=== PATIENT | male | born 1975 | race African-American/Black ===

== ENCOUNTER 2020-10-13 19:35 | Emergency (ER) | payer BC ==
[2020-10-13 20:52] LABS: Absolute Lymphocytes (CBC) 2.2 K/uL (0.7-4.9); Basophils % 0.9 % (0-1.3); Hematocrit 39.4 % (39.6-49.0); Lymphocytes % 34.7 % (15.3-44.8); MPV 8.3 fL (7.6-11.3); RBC Red Blood Cell Count 6.28 M/uL (4.33-5.43)
[2020-10-13 21:12] LABS: ALT/SGPT 73 U/L (12-78); AST/SGOT 35 U/L (15-37); Albumin 4.3 g/dL (3.4-5.0); Alkaline Phosphatase 78 U/L (45-117); BUN Blood Urea Nitrogen 19 mg/dL (7-18); Bicarbonate 26 mmol/L (21-32); Bilirubin Direct < 0.1 mg/dL (0-0.2); Bilirubin Total 0.3 mg/dL (0.2-1.0); Lipase 196 U/L (73-393); Potassium 4.1 mmol/L (3.5-5.1); Protein, Total 8.8 g/dL (6.4-8.2); Sodium Level 129 mmol/L (136-145)
[2020-10-13 21:14] LABS: Glucose Level 547 mg/dL (74-106)
[2020-10-13 21:28] LABS: Urine Blood Negative (Negative); Urine Glucose 2+ (Negative); Urine Protein Negative (Negative)
[2020-10-13 21:35] LABS: Anisocytosis 1+; Blood Morphology Comment NOTED (NOT SEEN); Hypochromasia 1+; Platelet Estimate ADEQ; Platelets, Giant FEW; Target Cells 1+; White Blood Cell Scan OK (OK)
[2020-10-13] MEDS ORDERED: NA CHLORIDE 0.9% 2,000 ML ONE (21:37)
[2020-10-13] MEDS ORDERED: INSULIN -REGULAR HUMAN 50 UNIT/0.5 ML ML ONE (22:16)
[2020-10-13] MEDS ORDERED: METFORMIN HCL 500 MG TAB ONE (22:16)
--- NOTE | 2020-10-13 23:50 | EDPHYS ---
Physician Documentation [facility] Name: Dallin Duval Age: 45 yrs Sex: Male : 1975 Arrival Date: 10/13/2020 Time: 19:39 Bed 5 Private MD: ED Physician Ray Pang HPI: 10/13 20:40 This 45 yrs old Black Male presents to ER via Ambulatory with complaints of High Blood cp Sugar. 20:40 The patient or guardian reports hyperglycemia, polyphagia, polyuria. Onset: The cp symptoms/episode began/occurred gradually, and became worse today. Current symptoms: In the emergency department the patient's symptoms are unchanged from the initial presentation. 20:40 Patient reports symptoms over past several weeks. Reports was dealing with cp constipation, so he he made changes to diet but symptoms worsening. Historical: - Allergies: 20:32 PENICILLINS; vg1 - Home Meds: 20:32 amlodipine oral [Active]; vg1 - PMHx: 20:32 Hypertensive disorder; vg1 - PSHx: 20:32 None; vg1 - Immunization history:: Adult Immunizations up to date, Client reports receiving the 2nd dose of the Covid vaccine. - Social history:: Smoking status: Patient denies any tobacco usage or history of. ROS: 20:45 Constitutional: Negative for body aches, chills, fever, poor PO intake. cp 20:45 Eyes: Negative for injury, pain, redness, and discharge. cp 20:45 ENT: Negative for drainage from ear(s), ear pain, sore throat, difficulty swallowing, difficulty handling secretions. 20:45 Cardiovascular: Negative for chest pain, palpitations. 20:45 Respiratory: Negative for cough, shortness of breath, wheezing. 20:45 Abdomen/GI: Positive for constipation, Negative for abdominal pain, nausea, vomiting, and diarrhea, black/tarry stool, rectal bleeding. 20:45 : Positive for urinary frequency. 20:45 Skin: Negative for cellulitis, rash. 20:45 Neuro: Negative for altered mental status, headache, weakness. 20:45 Endocrine: Positive for polydipsia, polyphagia, polyuria. 20:45 All other systems are negative. Exam: 20:50 Constitutional: The patient appears in no acute distress, alert, awake, cp non-diaphoretic, non-toxic, well developed, well nourished. 20:50 Head/Face: Normocephalic, atraumatic. cp 20:50 Eyes: Periorbital structures: appear normal, Pupils: equal, round, and reactive to light and accomodation, Extraocular movements: intact throughout, Conjunctiva: normal, no exudate, no injection, Sclera: no appreciated abnormality, Lids and lashes: appear normal, bilaterally. 20:50 ENT: External ear(s): are unremarkable, Nose: is normal, Mouth: Lips: moist, Oral mucosa: pink and intact, moist, Posterior pharynx: Airway: no evidence of obstruction, patent, Voice: is normal. 20:50 Neck: ROM/movement: is normal, is supple, without pain, no range of motions limitations. 20:50 Chest/axilla: Inspection: normal, Palpation: is normal, no crepitus, no tenderness. 20:50 Cardiovascular: Rate: normal, Rhythm: regular, Edema: is not appreciated, JVD: is not appreciated. 20:50 Respiratory: the patient does not display signs of respiratory distress, Respirations: normal, no use of accessory muscles, no retractions, labored breathing, is not present, Breath sounds: are clear throughout, no decreased breath sounds, no stridor, no wheezing. 20:50 Abdomen/GI: Inspection: abdomen appears normal, Palpation: abdomen is soft and non-tender, in all quadrants. 20:50 Skin: no rash present. 20:50 Neuro: Orientation: to person, place \T\ time. Mentation: is normal, Cerebellar function: is grossly normal, Motor: moves all fours, strength is normal, Sensation: is normal. 21:27 ECG was reviewed by the Attending Physician. cp Vital Signs: 20:26 BP 148 / 86; Pulse 83; Resp 16; Temp 97.6; Pulse Ox 96% ; Weight 106.59 kg; Height 6 vg1 ft. 4 in. (193.04 cm); Pain 0/10; 23:17 BP 126 / 78; Pulse 73; Resp 18; Temp 98; Pulse Ox 100% ; ea 20:26 Body Mass Index 28.60 (106.59 kg, 193.04 cm) vg1 MDM: 21:00 Differential diagnosis: diabetes insipidus, DKA, hyperglycemia. cp 21:05 Patient medically screened. cp 23:48 Data reviewed: vital signs, nurses notes, lab test result(s), EKG. 23:48 Counseling: I had a detailed discussion with the patient and/or guardian regarding: the cp historical points, exam findings, and any diagnostic results supporting the discharge/admit diagnosis, lab results, the need for outpatient follow up, for definitive care, a family practitioner, to return to the emergency department if symptoms worsen or persist or if there are any questions or concerns that arise at home. 10/13 20:35 Order name: Basic Metabolic Panel 10/13 20:35 Order name: CBC with Diff 10/13 20:35 Order name: Hepatic Function; Complete Time: 21:40 10/13 21:40 Interpretation: Normal except: TP 8.8; GLOB 4.5; A/G 1.0. 10/13 20:35 Order name: Lipase; Complete Time: 21:40 10/13 20:35 Order name: Ketone, Serum; Complete Time: 21:40 10/13 20:36 Order name: Basic Metabolic Panel; Complete Time: 21:18 EDMS 10/13 21:41 Interpretation: Normal except: NA 129; CL 93; GLUC 547; BUN 19; CRE 1.54; GFR 59. cp 10/13 20:36 Order name: CBC with Automated Diff; Complete Time: 21:40 EDMS 10/13 21:41 Interpretation: Normal except: RBC 6.28; HGB 12.6; HCT 39.4; MCV 62.7; MCH 20.0; MCHC cp 31.9; RDW 16.6. 10/13 20:38 Order name: Glucose, Ancillary Testing; Complete Time: 21:05 EDMS 10/13 21:28 Order name: Urine Dipstick-Ancillary; Complete Time: 21:40 EDMS 10/13 21:41 Interpretation: Normal except: UGLUC 2+; UKET 1+. 10/13 21:35 Order name: CBC Smear Scan; Complete Time: 21:40 EDMS 10/13 23:33 Order name: Glucose, Ancillary Testing EDWV 10/13 20:35 Order name: NPO; Complete Time: 20:39 10/13 20:35 Order name: IV Saline Lock; Complete Time: 21:23 10/13 20:35 Order name: Labs collected and sent; Complete Time: 21:23 cp 10/13 21:13 Order name: EKG; Complete Time: 21:13 cp 10/13 21:13 Order name: EKG - Nurse/Tech; Complete Time: :43 cp 10/13 23:06 Order name: Accucheck Blood Glucose; Complete Time: 23:16 cp EC: Rate is 81 beats/min. Rhythm is regular. IN interval is normal. QRS interval is cp prolonged at 102 msec. QT interval is normal. T waves are Inverted in lead III. Interpreted by me. Reviewed by me. Administered Medications: : Drug: NS 0.9% 1000 ml Route: IV; Rate: 1 bolus; Site: right antecubital; ea 21:23 Drug: NS 0.9% 1000 ml Route: IV; Rate: 1 bolus; Site: right antecubital; ea 21:50 Drug: Insulin Regular Human 5 units {Co-Signature: roe (Pal Givens.} Route: IVP; ea Site: right antecubital; 23:16 Follow up: Response: No adverse reaction ea 21:57 Drug: metFORMIN 500 mg Route: PO; ea 23:16 Follow up: Response: No adverse reaction ea Disposition: 10/14 01:17 Co-signature as Attending Physician, Ray Pang MD. pkl Disposition Summary: 10/13/20 23:49 Discharge Ordered Location: Home cp Problem: new cp Symptoms: have improved cp Condition: Stable cp Diagnosis - Diabetes mellitus due to underlying condition with hyperglycemia cp Followup: cp - With: Private Physician - When: 2 - 3 days - Reason: Recheck today's complaints Discharge Instructions: - Discharge Summary Sheet cp - Type 2 Diabetes Mellitus, Diagnosis, Adult cp - Hyperglycemia cp - Blood Glucose Monitoring, Adult cp - Diabetes Mellitus and Nutrition, Adult cp Forms: - Medication Reconciliation Form cp - Thank You Letter cp - Antibiotic Education cp - Prescription Opioid Use cp Prescriptions: - Metformin 500 mg Oral Tablet - take 1 tablet by ORAL route once daily for 7 days Then take 1 tablet with cp morning meals AND evening meals; 60 tablet; Refills: 0, Product Selection Permitted Signatures: Dispatcher MedHo Ray Guzman MD MD pkRosales Verma FNP-C [id number] Waylon Chaudhary PA PA cp Tamica Castro RN RN ea Garcia, Victoria, RN RN 1 Pal Thompson ak2
--- NOTE | 2020-10-13 23:50 | ER ---
Nurse's Notes [facility] Name: Dallin Duval Age: 45 yrs Sex: Male : 1975 Arrival Date: 10/13/2020 Time: 19:39 Bed 5 Private MD: Diagnosis: Diabetes mellitus due to underlying condition with hyperglycemia Presentation: 10/13 20:26 Chief complaint: Patient states: Is not dx with DM but stated that has been feeling vg1 very thristy, constipation, has had UTI, excessive urination and fatigued. Stated mother is a diabetic and she had him test his glucose and throughout the day FSBS has been in the 600's. FSBG done in triage, glucometer read "HI, exceeds measure". Coronavirus screen: Client denies travel out of the [place] in the last 14 days. Ebola Screen: Patient negative for fever greater than or equal to 101.5 degrees Fahrenheit, and additional compatible Ebola Virus Disease symptoms. Initial Sepsis Screen: Does the patient meet any 2 criteria? No. Patient's initial sepsis screen is negative. Does the patient have a suspected source of infection? No. Patient's initial sepsis screen is negative. Risk Assessment: Do you want to hurt yourself or someone else? Patient reports no desire to harm self or others. Onset of symptoms was October 13, 2020. 20:26 Method Of Arrival: Ambulatory vg1 20:26 Acuity: MELINA 2 vg1 Triage Assessment: 20:32 General: Appears in no apparent distress. comfortable, Behavior is calm, cooperative. vg1 Pain: Denies pain. Historical: - Allergies: 20:32 PENICILLINS; vg1 - Home Meds: 20:32 amlodipine oral [Active]; vg1 - PMHx: 20:32 Hypertensive disorder; vg1 - PSHx: 20:32 None; vg1 - Immunization history:: Adult Immunizations up to date, Client reports receiving the 2nd dose of the Covid vaccine. - Social history:: Smoking status: Patient denies any tobacco usage or history of. Screenin:22 Abuse screen: Denies threats or abuse. Nutritional screening: No deficits noted. ea Tuberculosis screening: No symptoms or risk factors identified. Fall Risk None identified. Assessment: 21:22 General: Appears in no apparent distress. Behavior is calm, cooperative, appropriate ea for age. Pain: Denies pain. Neuro: Level of Consciousness is awake, alert, obeys commands, Oriented to person, place, time. Respiratory: Airway is patent Respiratory effort is even, unlabored, Respiratory pattern is regular, symmetrical. Derm: Skin is pink, warm \\T\\ dry. 23:17 Reassessment: Patient and/or family updated on plan of care and expected duration. Pain ea level reassessed. Patient is alert, oriented x 3, equal unlabored respirations, skin warm/dry/pink. 10/14 00:01 Reassessment: Patient and/or family updated on plan of care and expected duration. Pain ea level reassessed. Patient is alert, oriented x 3, equal unlabored respirations, skin warm/dry/pink. Discharge instruction given to patient verbalized the understanding of instruction. Pt left ED ambulatory tolerating well. Vital Signs: 10/13 20:26 BP 148 / 86; Pulse 83; Resp 16; Temp 97.6; Pulse Ox 96% ; Weight 106.59 kg; Height 6 vg1 ft. 4 in. (193.04 cm); Pain 0/10; 23:17 BP 126 / 78; Pulse 73; Resp 18; Temp 98; Pulse Ox 100% ; ea 20:26 Body Mass Index 28.60 (106.59 kg, 193.04 cm) vg1 ED Course: 19:39 Patient arrived in ED. bp1 20:32 Triage completed. vg1 20:32 Arm band placed on Patient placed in waiting room, Patient notified of wait time. vg1 20:35 Waylon Chaudhary PA is PHCP. cp 20:35 Ray Pang MD is Attending Physician. cp 21:22 Patient has correct armband on for positive identification. Bed in low position. Call ea light in reach. Side rails up X2. 21:30 EKG done, by ED staff, reviewed by Waylon DOMINGUEZ. tt3 21:42 Tamica Castro, GLORIA is Primary Nurse. ea 10/14 00:01 No provider procedures requiring assistance completed. IV discontinued, intact, ea bleeding controlled, No redness/swelling at site. Pressure dressing applied. Administered Medications: 10/13 21:23 Drug: NS 0.9% 1000 ml Route: IV; Rate: 1 bolus; Site: right antecubital; ea 21:23 Drug: NS 0.9% 1000 ml Route: IV; Rate: 1 bolus; Site: right antecubital; ea 21:50 Drug: Insulin Regular Human 5 units {Co-Signature: ak2 (Pal Thompson).} Route: IVP; ea Site: right antecubital; 23:16 Follow up: Response: No adverse reaction ea 21:57 Drug: metFORMIN 500 mg Route: PO; ea 23:16 Follow up: Response: No adverse reaction ea Outcome: 23:49 Discharge ordered by MD. moscoso 10/14 00:01 Discharged to home ambulatory, with family. ea Condition: stable Discharge instructions given to patient, Instructed on discharge instructions, follow up and referral plans. medication usage, Demonstrated understanding of instructions, follow-up care, medications, Prescriptions given X 1. 00:03 Patient left the ED. ea Signatures: Waylon Chaudhary PA PA cp Antunez, Elena, RN Carmelina Enciso ea, RN RN vg1 Nadiya Madrigal Tyler tt3 Pal Thompson ak2
[2020-10-14 00:50] VITALS: BP 126/78; TEMP 98; O2SAT 100
--- NOTE | 2020-10-16 09:08 | EKG ---
Test Date: 2020-10-13 Test Time: 21:20:50 Football Pad Repairer: TLT MEASUREMENT RESULTS: Intervals: Rate: 81 WV: 168 QRSD: 102 QT: 368 QTc: 427 [place]: P: 51 WV: 168 QRS: 32 T: 9 INTERPRETIVE STATEMENTS: Normal sinus rhythm Nonspecific ST abnormality Abnormal ECG No previous ECG available for comparison Electronically Signed On 10-16-20 09:04:14 CDT by Pool Mckenzie
== END 2020-10-14 00:03 | disposition home or self-care (01) ==
LOC: ER 19:35
DX: E11.65 Type 2 diabetes mellitus with hyperglycemia (principal); I10 Essential (primary) hypertension; Z88.0 Allergy status to penicillin
CPT/HCPCS: 93005; 85025; 80048; 36415; 82010; 82947 ×2; 80076; 81003; 83690; 96374; 99283; J7030

== ENCOUNTER 2020-10-14 20:30 | Emergency (ER) | payer BC ==
--- NOTE | 2020-10-14 21:27 | ER ---
Nurse's Notes [facility] Name: Dallin Duval Age: 45 yrs Sex: Male : 1975 Arrival Date: 10/14/2020 Time: 20:33 Bed Waiting Private MD: Diagnosis: Presentation: 10/14 21:20 Chief complaint: Patient states: he was seen here yesterday with new onset diabetes BGL bb was 600 he can't get it down 585 now at home. Coronavirus screen: At this time, the client does not indicate any symptoms associated with coronavirus-19. Ebola Screen: No symptoms or risks identified at this time. Initial Sepsis Screen: Does the patient meet any 2 criteria? No. Patient's initial sepsis screen is negative. Does the patient have a suspected source of infection? No. Patient's initial sepsis screen is negative. Risk Assessment: Do you want to hurt yourself or someone else? Patient reports no desire to harm self or others. Note pt took a total of 20 units of regular insulin today. Onset of symptoms was October 14, 2020. 21:20 Method Of Arrival: Ambulatory bb 21:20 Acuity: MELINA 3 bb 21:26 Note after triage pt decided to go home did not want to wait. bb Triage Assessment: 21:23 General: Appears in no apparent distress. Behavior is calm, cooperative. Pain: Denies bb pain. Neuro: Level of Consciousness is awake, alert, obeys commands, Oriented to person, place, time. Cardiovascular: Capillary refill < 3 seconds Patient's skin is warm and dry. Respiratory: Respiratory effort is even, unlabored. GI: No signs and/or symptoms were reported involving the gastrointestinal system. Derm: Skin is dry, Skin is normal, Skin temperature is warm. Musculoskeletal: Circulation, motion, and sensation intact. Historical: - Allergies: 21:23 PENICILLINS; bb - Home Meds: 21:23 amlodipine oral [Active]; bb - PMHx: 21:23 Hypertensive disorder; bb - Immunization history:: Adult Immunizations up to date. - Social history:: Smoking status: Patient/guardian denies using tobacco, Stopped _ months ago 6. Vital Signs: 21:20 BP 139 / 95; Pulse 71; Resp 16 S; Temp 97.6(TE); Pulse Ox 100% on R/A; Weight 106.59 kg bb (R); Height 6 ft. 4 in. (193.04 cm) (R); Pain 0/10; 21:20 Body Mass Index 28.60 (106.59 kg, 193.04 cm) bb ED Course: 20:33 Patient arrived in ED. wm 21:23 Triage completed. bb 21:23 Arm band placed on Patient placed in waiting room, Patient notified of wait time. bb Administered Medications: No medications were administered Point of Care Testing: Blood Glucose: 21:23 Blood Glucose: 385 mg/dL; bb Ranges: Outcome: 21:27 Patient left the ED. bb Signatures: Christi Pedraza, RN RN bb Brenda Christensen
[2020-10-14 21:31] VITALS: BP 139/95; TEMP 97.6; O2SAT 100
== END 2020-10-14 21:27 | disposition left against medical advice (07) ==
LOC: ER 20:30
DX: Z53.21 Procedure and treatment not carried out due to patient leaving prior to being seen by health care provider (principal)
CPT/HCPCS: 82947; 99281

== ENCOUNTER 2024-03-21 11:01 | Emergency (ER) | payer BC, OTHER ==
--- OUTSIDE RECORDS SUMMARY | 2024-03-21 11:05 | XMS REPORT | Continuity of Care Document ---
Author Name Unknown Address [address] [facility] [address] [place] [address] [facility] Address [address] [facility] [address] [place] [address] Care Team Providers Care Management Aide Name Role Phone Ezequiel Katelyn Primary Care Physician [phone] Allergies, Adverse Reactions, Alerts Allergy Name Allergy Type Status Severity Reaction(s) Onset Date Inactive Date Treating Clinician Comments Source Penicill ins - CLASS Propensi ty to adverse reaction to drug Active 2021-03 0 00:00: 00 Irineo Fowler Penicill ins Propensi ty to adverse reaction to drug Active 09-04 00:00: 00 Irineo Fowler Medications Ordered Medication Name Filled Medication Name Start Date Stop Date Current Medication? Ordering Clinician Indication Dosage Frequency Signature (SIG) Comments Components Source Anni SoloStar U-300 Insulin 300 unit/mL (1.5 mL) subcutaneou s pen 2023-03 00:00: 00 Yes (1.5 mL) Irineo Fowler Levemir U-100 Insulin 100 unit/mL subcutaneou s solution 2023-03 00:00: 00 Yes unit/mL Irineo Fowler lisinopril 5 mg tablet 2023-03- 00:00: 00 Yes 1mg Irineo Fowler Farxiga 10 mg tablet 2023-03- 00:00: 00 Yes 1mg Irineo Fowler glimepiride 2 mg tablet 2023-03- 00:00: 00 Yes 1mg Irineo Fowler metformin ER 1,000 mg tablet,exte nded release 24hr (osmotic) 2023-03- 00:00: 00 Yes 1mg Irineo Fowler metformin ER 1,000 mg 24 hr tablet,exte nded release (gastric reten.) 2023-03 2 00:00: 00 Yes 1mg Irineo Asia Fowler atorvastati n 40 mg tablet 2023-03 2 00:00: 00 Yes 1mg Irnieo F Malcolm TAKE 1 TABLET AT BEDTIME. 4- 00:00: 00 05-05 00:00 :00 No 30 Irineo F Malcolm Take 1 tablet nightly 3- 00:00: 00 Yes 40 Irineo F Malcolm 1-1.5 tabs nightly as needed. - 00:00: 00 05-05 00:00 :00 No 30 Irineo F Maclolm TAKE 1 TABLET DAILY. - 00:00: 00 05-05 00:00 :00 No 5 Irineo F Malcolm TAKE 1 TABLET BY MOUTH EVERY MORNING 06-08 00:00: 00 05-05 00:00 :00 No 10 Irineo F Malcolm INJECT 20 UNITS NIGHTLY - 00:00: 00 05-05 00:00 :00 No 100 Irineo F Malcolm TAKE 1 TABLET BY MOUTH TWICE A DAY 1-07 00:00: 00 05-05 00:00 :00 No 2 Irineo F Malcolm TAKE 1 TABLET DAILY. 2021-03 00:00: 00 05-05 00:00 :00 No 5 Irineo F Malcolm TAKE 1 TABLET BY MOUTH EVERY MORNING 2021-03 00:00: 00 05-05 00:00 :00 No 10 Irineo F Malcolm TAKE 1 TABLET TWICE DAILY. 2021-03 00:00: 00 05-05 00:00 :00 No 1000 Irineo F Malcolm INJECT 20 UNITS NIGHTLY 2021-03 00:00: 00 05-05 00:00 :00 No 100 Irineo F Malcolm INJECT 14 UNITS UNDER THE SKIN EVERY NIGHT. 2021-03 0-10 00:00: 00 No INJECT 14 UNITS UNDER THE SKIN EVERY NIGHT. 2021-03 0-10 00:00: 00 05-05 00:00 :00 No Irineo F Malcolm Dose Unknown 09-06 00:00: 00 No Dose Unknown 09-06 00:00: 00 Yes Irineo Fowler Levemir FlexTouch U-100 Insulin 100 unit/mL (3 mL) subcutaneou s pen 09-05 00:00: 00 No 20(3 mL) atorvastati n 40 mg tablet 09-05 00:00: 00 No 1mg lisinopril 5 mg tablet 09-05 00:00: 00 No 1mg metformin 1,000 mg tablet 09-05 00:00: 00 No 2mg Dose Unknown 09-05 00:00: 00 No mirtazapine 30 mg tablet 09-05 00:00: 00 No mg Levemir FlexTouch U-100 Insulin 100 unit/mL (3 mL) subcutaneou s pen 09-05 00:00: 00 Yes 20(3 mL) Irineo Fowler atorvastati n 40 mg tablet 09-05 00:00: 00 Yes 1mg Irineo Fowler lisinopril 5 mg tablet 09-05 00:00: 00 Yes 1mg Irineo Fowler metformin 1,000 mg tablet 09-05 00:00: 00 Yes 2mg Irineo Fowler Farxiga 10 mg tablet 09-05 00:00: 00 Yes 1mg Irineo Fowler mirtazapine 30 mg tablet 09-05 00:00: 00 Yes mg Irineo Fowler Dose Unknown 09-04 00:00: 00 No lisinopril 5 mg tablet 09-04 00:00: 00 No 1mg metformin 1,000 mg tablet 09-04 00:00: 00 No 2mg atorvastati n 40 mg tablet 09-04 00:00: 00 No 1mg trazodone 50 mg tablet 09-04 00:00: 00 No 1mg Levemir FlexTouch U-100 Insulin 100 unit/mL (3 mL) subcutaneou s pen 09-04 00:00: 00 No 20(3 mL) Levemir FlexTouch U-100 Insulin 100 unit/mL (3 mL) subcutaneou s pen 09-04 00:00: 00 Yes 20(3 mL) Irineo Fowler atorvastati n 40 mg tablet 09-04 00:00: 00 Yes 1mg Irineo Fowler metformin 1,000 mg tablet 09-04 00:00: 00 Yes 2mg Irineo Fowler lisinopril 5 mg tablet 09-04 00:00: 00 Yes 1mg Irineo Fowler Farxiga 10 mg tablet 09-04 00:00: 00 Yes 1mg Irineo Fowler trazodone 50 mg tablet 09-04 00:00: 00 Yes 1mg Irineo Fowler TAKE ONE-HALF (1/2) TABLET(S) BY MOUTH ONCE A DAY. 28 00:00: 00 05-05 00:00 :00 No Irineo Fowler TAKE 1 TABLET (40 MG) BY MOUTH 1 (ONE) TIME EACH DAY. 4-05 00:00: 00 05-05 00:00 :00 No Irineo Fowler TAKE 4 TABLETS (2,000 MG) BY MOUTH 1 (ONE) TIME EACH DAY WITH BREAKFAST. 06-14 00:00: 00 05-05 00:00 :00 No Irineo Fowler Vital Signs Vital Name Observation Time Observation Value Comments S ource BP Diastolic 2024-02-27 09:30:00 91 mm[Hg] Parminder phen Asia Fowler Weight Measured 2024-02-27 09:30:00 219.00 pounds Irineo Fowler Height Measured 2024-02-27 09:30:00 74.00 inches Irineo Fowler Body Temperature 2024-02-27 09:30:00 98.80 degrees Irineo Fowler Heart Rate 2024-02-27 09:30:00 94.00 /min Iliana en Asia Fowler Respiratory Rate 2024-02-27 09:30:00 18.00 /min Irineo Fowler BP Systolic 2024-02-27 09:30:00 150 mm[Hg] Bart hen Asia Fowler BP Systolic 2022-03-16 12:43:00 148 mm[Hg] Step hen F Malcolm BP Diastolic 2022-03-16 12:43:00 92 mm[Hg] Parminder phen F Malcolm Weight Measured 2022-03-16 12:43:00 219.00 pounds Irineo F Malcolm Height Measured 2022-03-16 12:43:00 74.00 inches Irineo F Malcolm Body Temperature 2022-03-16 12:43:00 98.00 degrees Irineo F Malcolm Heart Rate 2022-03-16 12:43:00 93.00 /min Iliana en F Malcoml Respiratory Rate 2022-03-16 12:43:00 18.00 /min Irineo F Malcolm BP Systolic 2021-12-27 15:16:00 148 mm[Hg] Step hen F Malcolm BP Diastolic 2021-12-27 15:16:00 98 mm[Hg] Parminder phen F Malcolm Weight Measured 2021-12-27 15:16:00 228.00 pounds Irineo F Malcolm Height Measured 2021-12-27 15:16:00 74.00 inches Irineo F Malcolm Body Temperature 2021-12-27 15:16:00 98.20 degrees Irineo F Malcolm Heart Rate 2021-12-27 15:16:00 89.00 /min Iliana en F Malcolm Respiratory Rate 2021-12-27 15:16:00 18.00 /min Irineo F Malcolm BP Systolic 2021-09-04 13:46:00 153 mm[Hg] Step hen F Malcolm BP Diastolic 2021-09-04 13:46:00 95 mm[Hg] Parminder phen F Malcolm Weight Measured 2021-09-04 13:46:00 218.60 pounds Irineo F Malcolm Height Measured 2021-09-04 13:46:00 74.00 inches Irineo F Malcolm Body Temperature 2021-09-04 13:46:00 98.40 degrees Irineo F Malcolm Heart Rate 2021-09-04 13:46:00 85.00 /min Iliana en F Malcolm Respiratory Rate 2021-09-04 13:46:00 17.00 /min Irineo F Malcolm Plan of Care Planned Activity Planned Date Details Comments Source Goal Plan of Care Note [code = 04995-2] Goal Plan of Care Note [code = 84786-7] Goal Plan of Care Note [code = 22460-8] Encounters Start Date/Time End Date/Time Encounter Type Admission Type Attending [facility] Care Department Encounter ID Source 2024-02-27 09:23:00 2024-02-27 09:23:00 Outpatient [facility] [id number] Irineo Fowler 2024-02-27 00:00:00 2024-02-27 00:00:00 Outpatient Visit [facility] [id number] Irineo Fowler 2022-06-08 10:33:59 2022-06-08 10:33:59 Outpatient [facility] [id number] Irineo Fowler 2022-03-16 12:48:12 2022-03-16 12:48:12 Outpatient [facility] [id number] rIineo Fowler 2021-12-27 15:08:08 2021-12-27 15:08:08 Outpatient [facility] [id number] Irineo Fowler 2021-12-27 00:00:00 2021-12-27 00:00:00 Outpatient Visit [id number] Results Test Description Test Time Test Comments Results Result Co mments Source COMPREHENSIVE METABOLIC [id number] 04:02:35* Test Item Value Reference Range Interpretation Comme nts GLUCOSE (test code = 2217) 287 MG/DL 70-99 H BUN (test code = 2208) 9 MG/DL 6-20 CREATININE (test code = 2214) 0.84 MG/DL 0.80-1.40 eGFR (2020 CKD-EPI) (test code = 72906) 106 ML/MIN/1.73 >60 CALC BUN/CREAT (test code = 2235) 11 RATIO 6-28 SODIUM (test code = 2231) 137 MEQ/L 133-146 POTASSIUM (test code = 2228) 4.3 MEQ/L 3.5-5.4 CHLORIDE (test code = 2215) 95 MEQ/L 95-107 CARBON DIOXIDE (test code = 2206) 22 MEQ/L 19-31 CALCIUM (test code = 2209) 10.2 MG/DL 8.5-10.5 PROTEIN, TOTAL (test code = 222) 7.9 G/DL 6.1-8.3 ALBUMIN (test code = 220) 5.0 G/DL 3.5-5.2 CALC GLOBULIN (test code = 2240) 2.9 G/DL 1.9-3.7 CALC A/G RATIO (test code = 223) 1.7 RATIO 1.0-2.6 BILIRUBIN, TOTAL (test code = 2206) 0.3 MG/DL <=1.2 ALKALINE PHOSPHATASE (test code = 220) 80 U/L 40-118 AST (test code = 221) 110 U/L 9-50 H ALT (test code = 221) 145 U/L 5-50 H LIPID [id number] 04:02:35* Test Item Value Reference Range Interpretation Comme nts CHOLESTEROL (test code = 0) 389 MG/DL <200 H TRIGLYCERIDES (test code = 2232) 542 MG/DL <150 H HDL CHOLESTEROL (test code = 2219) 36 MG/DL >39 L CALC LDL CHOL (test code = 223) (NOTE) MG/DL <100 UNABLE TO CALCUL ATE A VALID LDL CHOLESTEROL WHEN THE TRIGLYCERIDEVALUE IS GREATER THAN 400 MG/DL. NOTE: CALCULATED LDL IS BASED ON KAYCEE-ESQUIVEL METHOD WHICHINCLUDES ADJUSTABLE TRIGLYCERIDE:VLDL CHOLESTEROL RATIO.THIS FACTOR VARIES BY MEASURED TRIGLYCERIDE AND NON-HDLCHOLESTEROL CONCENTRATIONS WITH INCREASED CALCULATED LDL SEENIN HIGHER TRIGLYCERIDE OR LOWER NON-HDL SPECIMENS. FOR MOREINFORMATION, SEE CLIENT ANNOUNCEMENT AT [email or web address] CalcLDL-C RISK RATIO LDL/HDL (test code = 223) (NOTE) RATIO <3.55 UNABLE TO AUSTEN CULATE COMPREHENSIVE METABOLIC [id number] 00:00:00* Test Item Value Reference Range Interpretation Comme nts GLUCOSE (test code = 2216) 287 MG/DL BUN (test code = 2207) 9 MG/DL CREATININE (test code = 221) 0.84 MG/DL eGFR (2020 CKD-EPI) (test code = 53034) 106 ML/MIN/1.73 CALC BUN/CREAT (test code = 2235) 11 RATIO SODIUM (test code = 223) 137 MEQ/L POTASSIUM (test code = 8) 4.3 MEQ/L CHLORIDE (test code = 2215) 95 MEQ/L CARBON DIOXIDE (test code = 2206) 22 MEQ/L CALCIUM (test code = 2209) 10.2 MG/DL PROTEIN, TOTAL (test code = 2229) 7.9 G/DL ALBUMIN (test code = 2201) 5.0 G/DL CALC GLOBULIN (test code = 2240) 2.9 G/DL CALC A/G RATIO (test code = 2234) 1.7 RATIO BILIRUBIN, TOTAL (test code = 2207) 0.3 MG/DL ALKALINE PHOSPHATASE (test code = 2204) 80 U/L AST (test code = 2218) 110 U/L ALT (test code = 2219) 145 U/L Irineo FowlerLIPID [id number] 00:00:00* Test Item Value Reference Range Interpretation Comme nts CHOLESTEROL (test code = 2210) 389 MG/DL TRIGLYCERIDES (test code = 2232) 542 MG/DL HDL CHOLESTEROL (test code = 2220) 36 MG/DL CALC LDL CHOL (test code = 2237) (NOTE) MG/DL RISK RATIO LDL/HDL (test cod e = 2238) (NOTE) RATIO Irineo FowlerHEMOGLOBIN [id number] 00:00:00* Test Item Value Reference Range Interpretation Comme nts HEMOGLOBIN A1c (test code = 46547) 12.9 % Irineo FowlerCOMPREHENSIVE METABOLIC [id number] 02:52:13* Test Item Value Reference Range Interpretation Comme nts GLUCOSE (test code = 2217) 96 MG/DL 70-99 BUN (test code = 8) 12 MG/DL 6-20 CREATININE (test code = 2214) 1.11 MG/DL 0.80-1.40 eGFR (2020 CKD-EPI) (test code = 91051) 82 ML/MIN/1.73 >60 CALC BUN/CREAT (test code = 2235) 11 RATIO 6-28 SODIUM (test code = 2231) 140 MEQ/L 133-146 POTASSIUM (test code = 2228) 4.8 MEQ/L 3.5-5.4 CHLORIDE (test code = 2215) 103 MEQ/L 95-107 CARBON DIOXIDE (test code = 2206) 23 MEQ/L 19-31 CALCIUM (test code = 2209) 10.5 MG/DL 8.5-10.5 PROTEIN, TOTAL (test code = 2229) 8.1 G/DL 6.1-8.3 ALBUMIN (test code = 2201) 5.0 G/DL 3.5-5.2 CALC GLOBULIN (test code = 2240) 3.1 G/DL 1.9-3.7 CALC A/G RATIO (test code = 2234) 1.6 RATIO 1.0-2.6 BILIRUBIN, TOTAL (test code = 2207) 0.3 MG/DL See_Comment [Automated me ssage] The system which generated this result transmitted reference range: <=1.2. The reference range was not used to interpret this result as normal/abnormal. ALKALINE PHOSPHATASE (test code = 2204) 56 U/L 40-118 AST (test code = 2218) 32 U/L 9-50 ALT (test code = 2219) 29 U/L 5-50 LIPID [id number] 02:52:13* Test Item Value Reference Range Interpretation Comme nts CHOLESTEROL (test code = 2210) 155 MG/DL <200 TRIGLYCERIDES (test code = 2232) 115 MG/DL <150 HDL CHOLESTEROL (test code = 2220) 42 MG/DL >39 CALC LDL CHOL (test code = 2237) 92 MG/DL <100 NOTE: CALCULATED LDL IS BASED ON KAYCEE-ESQUIVEL METHOD WHICHINCLUDES ADJUSTABLE TRIGLYCERIDE:VLDL CHOLESTEROL RATIO.THIS FACTOR VARIES BY MEASURED TRIGLYCERIDE AND NON-HDLCHOLESTEROL CONCENTRATIONS WITH INCREASED CALCULATED LDL SEENIN HIGHER TRIGLYCERIDE OR LOWER NON-HDL SPECIMENS. FOR MOREINFORMATION, SEE CLIENT ANNOUNCEMENT AT [email or web address] RISK RATIO LDL/HDL (test code = 2238) 2.19 RATIO <3.55 COMPREHENSIVE METABOLIC [id number] 00:00:00* Test Item Value Reference Range Interpretation Comme nts GLUCOSE (test code = 2217) 96 MG/DL BUN (test code = 2208) 12 MG/DL CREATININE (test code = 2214) 1.11 MG/DL eGFR (2020 CKD-EPI) (test co de = 58690) 82 ML/MIN/1.73 CALC BUN/CREAT (test code = 2235) 11 RATIO SODIUM (test code = 223) 140 MEQ/L POTASSIUM (test code = 2228) 4.8 MEQ/L CHLORIDE (test code = 2215) 103 MEQ/L CARBON DIOXIDE (test code = 2206) 23 MEQ/L CALCIUM (test code = 2209) 10.5 MG/DL PROTEIN, TOTAL (test code = 2229) 8.1 G/DL ALBUMIN (test code = 2201) 5.0 G/DL CALC GLOBULIN (test code = 2240) 3.1 G/DL CALC A/G RATIO (test code = 2234) 1.6 RATIO BILIRUBIN, TOTAL (test code = 2207) 0.3 MG/DL ALKALINE PHOSPHATASE (test code = 2204) 56 U/L AST (test code = 2218) 32 U/L ALT (test code = 2219) 29 U/L Irineo FowlerLIPID [id number] 00:00:00* Test Item Value Reference Range Interpretation Comme nts CHOLESTEROL (test code = 2210) 155 MG/DL TRIGLYCERIDES (test code = 2232) 115 MG/DL HDL CHOLESTEROL (test code = 2220) 42 MG/DL CALC LDL CHOL (test code = 2237) 92 MG/DL RISK RATIO LDL/HDL (test cod e = 2238) 2.19 RATIO Irineo FowlerHEMOGLOBIN [id number] 04:41:00* Test Item Value Reference Range Interpretation Comme nts HEMOGLOBIN A1c (test code = 73583) 8.6 % 4.2-5.6 H [employer] GUIDELINES FOR HGB A1C: PREDIABETES/INCREASED RISK . . . . . . . 5.7-6.4% DIAGNOSIS OF DIABETES . . . . . . . . . >=6.5% WITH CONFIRMATION OR APPROPRIATE SYMPTOMS NOTE: ASSAY MAY BE AFFECTED BY HEMOGLOBINOPATHIES (SICKLE CELL ANEMIA, S-C DISEASE, OTHERS) OR ARTIFICIALLY LOWERED BY DECREASED RED CELL SURVIVAL (HEMOLYTIC ANEMIAS, BLOOD LOSS, ETC.). CONSIDER ALTERNATE TESTING OR LABORATORY CONSULTATION. [facility] has important pathology staff changes effective 05/15/2022. New pathology staff will provide uninterrupted, excellent patient care and clinical consultation. See URL: [email or web address]. UNLESS OTHERWISE INDICATED, ALL TESTING PERFORMED AT [facility] [address] [place] [address] DIRECTORY OPERATOR: SEMAJ AYALA M.D. CLIA NUMBER [id number] [place]. [id number] HEMOGLOBIN [id number] 00:00:00* Test Item Value Reference Range Interpretation Comme nts HEMOGLOBIN A1c (test code = 13806) 8.6 % Irineo FowlerLIPID [id number] 23:37:35* Test Item Value Reference Range Interpretation Comme nts CHOLESTEROL (test code = 2210) 213 MG/DL <200 H TRIGLYCERIDES (test code = 2232) 150 MG/DL <150 H HDL CHOLESTEROL (test code = 2220) 40 MG/DL >39 CALC LDL CHOL (test code = 2237) 145 MG/DL <100 H NOTE: CALCULATED LDL IS BASED ON KAYCEE-ESQUIVEL METHOD WHICHINCLUDES ADJUSTABLE TRIGLYCERIDE:VLDL CHOLESTEROL RATIO.THIS FACTOR VARIES BY MEASURED TRIGLYCERIDE AND NON-HDLCHOLESTEROL CONCENTRATIONS WITH INCREASED CALCULATED LDL SEENIN HIGHER TRIGLYCERIDE OR LOWER NON-HDL SPECIMENS. FOR MOREINFORMATION, SEE CLIENT ANNOUNCEMENT AT [email or web address] RISK RATIO LDL/HDL (test code = 2238) 3.63 RATIO <3.55 H UNLESS OTHERW ISE INDICATED, [facility] [address] [place] [address] DIRECTORY OPERATOR: TEQUILA PATTERSON M.D. CLIA NUMBER [id number] [facility] [place]. [id number] LIPID [id number] 00:00:00* Test Item Value Reference Range Interpretation Comme nts CHOLESTEROL (test code = 2210) 213 MG/DL TRIGLYCERIDES (test code = 2232) 150 MG/DL HDL CHOLESTEROL (test code = 2220) 40 MG/DL CALC LDL CHOL (test code = 2237) 145 MG/DL RISK RATIO LDL/HDL (test cod e = 2238) 3.63 RATIO Irineo FowlerHEMOGLOBIN [id number] 04:32:32* Test Item Value Reference Range Interpretation Comme nts HEMOGLOBIN A1c (test code = 86624) 12.3 % 4.2-5.6 H [employer] GUIDELINES FOR HGB A1C: PREDIABETES/INCREASED RISK . . . . . . . 5.7-6.4% DIAGNOSIS OF DIABETES . . . . . . . . . >=6.5% WITH CONFIRMATION OR APPROPRIATE SYMPTOMS NOTE: ASSAY MAY BE AFFECTED BY HEMOGLOBINOPATHIES (SICKLE CELL ANEMIA, S-C DISEASE, OTHERS) OR ARTIFICIALLY LOWERED BY DECREASED RED CELL SURVIVAL (HEMOLYTIC ANEMIAS, BLOOD LOSS, ETC.). CONSIDER ALTERNATE TESTING OR LABORATORY CONSULTATION. HEMOGLOBIN [id number] 00:00:00* Test Item Value Reference Range Interpretation Comme [facility] HEMOGLOBIN A1c (test code = 33183) 12.3 % Irineo Betancourt AustinHEMOGLOBIN [id number] 04:45:29* Test Item Value Reference Range Interpretation Comme [facility] HEMOGLOBIN A1c (test code = 46831) 11.8 % 4.2-5.6 H [employer] GUIDELINES FOR HGB A1C: PREDIABETES/INCREASED RISK . . . . . . . 5.7-6.4% DIAGNOSIS OF DIABETES . . . . . . . . . >=6.5% WITH CONFIRMATION OR APPROPRIATE SYMPTOMS NOTE: ASSAY MAY BE AFFECTED BY HEMOGLOBINOPATHIES (SICKLE CELL ANEMIA, S-C DISEASE, OTHERS) OR ARTIFICIALLY LOWERED BY DECREASED RED CELL SURVIVAL (HEMOLYTIC ANEMIAS, BLOOD LOSS, ETC.). CONSIDER ALTERNATE TESTING OR LABORATORY CONSULTATION. COMPREHENSIVE METABOLIC [id number] 04:04:31* Test Item Value Reference Range Interpretation Comme nts GLUCOSE (test code = 2217) 323 MG/DL 70-99 H BUN (test code = 8) 15 MG/DL 6-20 CREATININE (test code = 2214) 0.95 MG/DL 0.80-1.40 eGFR (2020 CKD-EPI) (test code = 88033) 99 ML/MIN/1.73 >60 CALC BUN/CREAT (test code = 2235) 16 RATIO 6-28 SODIUM (test code = 223) 137 MEQ/L 133-146 POTASSIUM (test code = 2228) 4.8 MEQ/L 3.5-5.4 CHLORIDE (test code = 2215) 95 MEQ/L 95-107 CARBON DIOXIDE (test code = 2206) 25 MEQ/L 19-31 CALCIUM (test code = 2209) 10.7 MG/DL 8.5-10.5 H PROTEIN, TOTAL (test code = 2228) 8.4 G/DL 6.1-8.3 H ALBUMIN (test code = 220) 5.0 G/DL 3.5-5.2 CALC GLOBULIN (test code = 2240) 3.4 G/DL 1.9-3.7 CALC A/G RATIO (test code = 2234) 1.5 RATIO 1.0-2.6 BILIRUBIN, TOTAL (test code = 2207) <0.2 MG/DL See_Comment [Automated me ssage] The system which generated this result transmitted reference range: <=1.2. The reference range was not used to interpret this result as normal/abnormal. ALKALINE PHOSPHATASE (test code = 4) 75 U/L 40-118 AST (test code = 2218) 24 U/L 9-50 ALT (test code = 2219) 60 U/L 5-50 H LIPID [id number] 04:04:31* Test Item Value Reference Range Interpretation Comme nts CHOLESTEROL (test code = 2210) 257 MG/DL <200 H TRIGLYCERIDES (test code = 2232) 1132 MG/DL <150 H SPECIMEN LI PEMIC RESULTS RECHECKED AND VERIFIED HDL CHOLESTEROL (test code = 2220) 29 MG/DL >39 L CALC LDL CHOL (test code = 2237) (NOTE) MG/DL <100 UNABLE TO CALCUL ATE A VALID LDL CHOLESTEROL WHEN THE TRIGLYCERIDEVALUE IS GREATER THAN 400 MG/DL.UNABLE TO CALCULATE A VALID LDL CHOLESTEROL WHEN THE TRIGLYCERIDEVALUE IS GREATER THAN 400 MG/DL. NOTE: CALCULATED LDL IS BASED ON KAYCEE-ESQUIVEL METHOD WHICHINCLUDES ADJUSTABLE TRIGLYCERIDE:VLDL CHOLESTEROL RATIO.THIS FACTOR VARIES BY MEASURED TRIGLYCERIDE AND NON-HDLCHOLESTEROL CONCENTRATIONS WITH INCREASED CALCULATED LDL SEENIN HIGHER TRIGLYCERIDE OR LOWER NON-HDL SPECIMENS. FOR MOREINFORMATION, SEE CLIENT ANNOUNCEMENT AT [email or web address] CalcLDL-C RISK RATIO LDL/HDL (test code = 2238) (NOTE) RATIO <3.55 UNABLE TO [place]USTEN CULATE UNLESS OTHERWISE INDICATED, [facility] [address] [place] [address] DIRECTORY OPERATOR: TEQUILA PATTERSON M.D. CLIA NUMBER [id number] [facility] [place]. [id number] HEMOGLOBIN [id number] 00:00:00* Test Item Value Reference Range Interpretation Comme nts HEMOGLOBIN A1c (test code = 70398) 11.8 % COMPREHENSIVE METABOLIC [id number] 00:00:00* Test Item Value Reference Range Interpretation Comme nts GLUCOSE (test code = 2217) 323 MG/DL BUN (test code = 2208) 15 MG/DL CREATININE (test code = 2214) 0.95 MG/DL eGFR (2020 CKD-EPI) (test co de = 76883) 99 ML/MIN/1.73 CALC BUN/CREAT (test code = 2235) 16 RATIO SODIUM (test code = 2231) 137 MEQ/L POTASSIUM (test code = 2228) 4.8 MEQ/L CHLORIDE (test code = 2215) 95 MEQ/L CARBON DIOXIDE (test code = 2206) 25 MEQ/L CALCIUM (test code = 2209) 10.7 MG/DL PROTEIN, TOTAL (test code = 2229) 8.4 G/DL ALBUMIN (test code = 2201) 5.0 G/DL CALC GLOBULIN (test code = 2240) 3.4 G/DL CALC A/G RATIO (test code = 2234) 1.5 RATIO BILIRUBIN, TOTAL (test code = 2207) <0.2 MG/DL ALKALINE PHOSPHATASE (test code = 2204) 75 U/L AST (test code = 2218) 24 U/L ALT (test code = 2219) 60 U/L LIPID [id number] 00:00:00* Test Item Value Reference Range Interpretation Comme nts CHOLESTEROL (test code = 2210) 257 MG/DL TRIGLYCERIDES (test code = 2232) 1132 MG/DL HDL CHOLESTEROL (test code = 2220) 29 MG/DL CALC LDL CHOL (test code = 2237) (NOTE) MG/DL RISK RATIO LDL/HDL (test cod e = 2238) (NOTE) RATIO HEMOGLOBIN [id number] 00:00:00* Test Item Value Reference Range Interpretation Comme nts HEMOGLOBIN A1c (test code = 27128) 11.8 % Irineo F AustinCOMPREHENSIVE METABOLIC [id number] 00:00:00* Test Item Value Reference Range Interpretation Comme nts GLUCOSE (test code = 2217) 323 MG/DL BUN (test code = 2208) 15 MG/DL CREATININE (test code = 2214) 0.95 MG/DL eGFR (2020 CKD-EPI) (test co de = 08788) 99 ML/MIN/1.73 CALC BUN/CREAT (test code = 2235) 16 RATIO SODIUM (test code = 2231) 137 MEQ/L POTASSIUM (test code = 2228) 4.8 MEQ/L CHLORIDE (test code = 2215) 95 MEQ/L CARBON DIOXIDE (test code = 2206) 25 MEQ/L CALCIUM (test code = 2209) 10.7 MG/DL PROTEIN, TOTAL (test code = 2229) 8.4 G/DL ALBUMIN (test code = 2201) 5.0 G/DL CALC GLOBULIN (test code = 2240) 3.4 G/DL CALC A/G RATIO (test code = 2234) 1.5 RATIO BILIRUBIN, TOTAL (test code = 2207) <0.2 MG/DL ALKALINE PHOSPHATASE (test code = 2204) 75 U/L AST (test code = 2218) 24 U/L ALT (test code = 2219) 60 U/L Irineo FowlerLIPID [id number] 00:00:00* Test Item Value Reference Range Interpretation Comme nts CHOLESTEROL (test code = 2210) 257 MG/DL TRIGLYCERIDES (test code = 2232) 1132 MG/DL HDL CHOLESTEROL (test code = 2220) 29 MG/DL CALC LDL CHOL (test code = 2237) (NOTE) MG/DL RISK RATIO LDL/HDL (test cod e = 2238) (NOTE) RATIO Irineo Fowler
[2024-03-21] MEDS ORDERED: NA CHLORIDE 0.9% 500 ML ONE (11:33)
[2024-03-21] MEDS ORDERED: ASPIRIN 81 MG CHEWABLE TABLET ONE (11:33)
[2024-03-21 11:57] LABS: Absolute Eosinophils 0.1 K/uL (0-0.5); Absolute Lymphocytes (CBC) 1.5 K/uL (0.7-4.9); Absolute Monocytes 0.6 K/uL (0.1-1.3); Basophils % 0.9 % (0-1.3); Eosinophils % 2.2 % (0-4.4); Hematocrit 40.2 % (39.6-49.0); Hemoglobin 12.3 g/dL (13.6-17.9); Lymphocytes % 35.1 % (15.3-44.8); MCH 20.2 pg (27.0-35.0); MCHC 30.7 g/dL (32.0-36.0); MCV 65.8 fL (80-100); MPV 7.3 fL (7.6-11.3); Monocytes % 15.1 % (3.3-12.3); Neutrophils % 46.7 % (41.7-73.7); Nucleated Red Blood Cells % 0.4 % (0-0); PT Prothrombin Time 11.1 SECONDS (9.4-12.5); Platelets 340 thou/uL (152-406); Protime INR 0.99; RBC Red Blood Cell Count 6.11 M/uL (4.33-5.43); Red Cell Distribution Width 17.9 % (12.1-15.2)
--- NOTE | 2024-03-21 12:12 | RAD REPORT ---
Procedure: Chest Single View HISTORY: Chest pain COMPARISON: none FINDINGS: The lungs appear clear of acute infiltrate. Calcified granulomas are present within the lungs. No significant pleural effusion noted. The heart is normal size. IMPRESSION: No acute abnormality is displayed.
[2024-03-21 12:14] LABS: Albumin 4.2 g/dL (3.4-5.0); Anion Gap 11.3 mEq/L (5.0-15.0); Bilirubin Direct 0.2 mg/dL (0-0.2); Bilirubin Indirect, Calculated 0.2 mg/dL (0.2-0.8); Bilirubin Total 0.4 mg/dL (0.2-1.0); Globulin 4.3 g/dL (2.3-3.5); Magnesium 2.2 mg/dL (1.6-2.4); Potassium 4.3 mEq/L (3.5-5.1); Protein, Total 8.5 g/dL (6.4-8.2); Troponin High Sensitivity 3.3 pg/mL (<58.9)
[2024-03-21 13:00] LABS: White Blood Cell Scan OK (OK)
[2024-03-21 13:01] LABS: Basophilic Stippling 1+; Blood Morphology Comment NOTED (NOT SEEN); Hypochromasia 1+; Microcytosis 1+; Platelet Estimate ADEQ; Polychromasia 1+; Target Cells 1+
[2024-03-21] MEDS ORDERED: AMLODIPINE 10 MG TAB ONE (14:52)
--- NOTE | 2024-03-21 14:55 | EDPHYS ---
Physician Documentation [facility] Name: Dallin Duval Age: 49 yrs Sex: Male : 1975 Arrival Date: 03/21/2024 Time: 11:01 Bed 15 Private MD: ED Physician Waylon Ortiz HPI: 03/21 14:49 This 49 yrs old Black Male presents to ER via Ambulatory with complaints of High Blood dashawn Pressure, Shortness Of Breath. 14:49 The patient has elevated blood pressure and discovered this at home, with a home dashawn device. Onset: The symptoms/episode began/occurred this morning. Modifying factors: The symptoms are aggravated by activity, The symptoms are alleviated by remaining still. Associated signs and symptoms: The patient has no apparent associated signs or symptoms. Severity of symptoms: At its worst the blood pressure was mild, moderate, in the emergency department the blood pressure is unchanged. The patient has experienced similar episodes in the past, several times. Historical: - Allergies: 11:19 PENICILLINS; cm10 - Home Meds: 11:19 lisinopril 5 mg oral tablet 1 tab daily [Active]; cm10 - PMHx: 11:19 Hypertensive disorder; cm10 - Immunization history:: Adult Immunizations up to date. - Infectious Disease History:: Denies. - Social history:: Smoking status: Patient denies any tobacco usage or history of. ROS: 14:49 Constitutional: Negative for fever, chills, and weight loss, Eyes: Negative for injury, dashawn pain, redness, and discharge, ENT: Negative for injury, pain, and discharge, Neck: Negative for injury, pain, and swelling, Cardiovascular: Negative for chest pain, palpitations, and edema, Abdomen/GI: Negative for abdominal pain, nausea, vomiting, diarrhea, and constipation, Back: Negative for injury and pain, : Negative for injury, bleeding, discharge, and swelling, MS/Extremity: Negative for injury and deformity, Skin: Negative for injury, rash, and discoloration, Neuro: Negative for headache, weakness, numbness, tingling, and seizure, Psych: Negative for depression, anxiety, suicide ideation, homicidal ideation, and hallucinations, Allergy/Immunology: Negative for hives, rash, and allergies, Endocrine: Negative for neck swelling, polydipsia, polyuria, polyphagia, and marked weight changes, Hematologic/Lymphatic: Negative for swollen nodes, abnormal bleeding, and unusual bruising, 14:49 Respiratory: Positive for shortness of breath, 14:49 : Negative for 14:49 MS/extremity: Negative for swelling, tenderness, Exam: 14:49 Constitutional: This is a well developed, well nourished patient who is awake, alert, dashawn and in no acute distress. Head/Face: Normocephalic, atraumatic. Eyes: Pupils equal round and reactive to light, extra-ocular motions intact. Lids and lashes normal. Conjunctiva and sclera are non-icteric and not injected. Cornea within normal limits. Periorbital areas with no swelling, redness, or edema. ENT: Nares patent. No nasal discharge, no septal abnormalities noted. Tympanic membranes are normal and external auditory canals are clear. Oropharynx with no redness, swelling, or masses, exudates, or evidence of obstruction, uvula midline. Mucous membranes moist. Neck: Trachea midline, no thyromegaly or masses palpated, and no cervical lymphadenopathy. Supple, full range of motion without nuchal rigidity, or vertebral point tenderness. No Meningismus. Chest/axilla: Normal chest wall appearance and motion. Nontender with no deformity. No lesions are appreciated. Cardiovascular: Regular rate and rhythm with a normal S1 and S2. No gallops, murmurs, or rubs. Normal PMI, no JVD. No pulse deficits. Respiratory: Lungs have equal breath sounds bilaterally, clear to auscultation and percussion. No rales, rhonchi or wheezes noted. No increased work of breathing, no retractions or nasal flaring. Abdomen/GI: Soft, non-tender, with normal bowel sounds. No distension or tympany. No guarding or rebound. No evidence of tenderness throughout. Back: No spinal tenderness. No costovertebral tenderness. Full range of motion. Skin: Warm, dry with normal turgor. Normal color with no rashes, no lesions, and no evidence of cellulitis. MS/ Extremity: Pulses equal, no cyanosis. Neurovascular intact. Full, normal range of motion., bilateral aka Neuro: Awake and alert, GCS 15, oriented to person, place, time, and situation. Cranial nerves II-XII grossly intact. Motor strength 5/5 in all extremities. Sensory grossly intact. Cerebellar exam normal. Normal gait. Psych: Awake, alert, with orientation to person, place and time. Behavior, mood, and affect are within normal limits. 14:49 ECG was reviewed by the Attending Physician. 14:49 Musculoskeletal/extremity: DVT Exam: No signs of deep vein thrombosis. no pain, no swelling, no tenderness, negative Homans' sign noted on exam, no appreciated bluish discoloration, no erythema, no increased warmth, Vital Signs: 11:17 BP 161 / 100; Pulse 80; Resp 15; Temp 98.8; Pulse Ox 100% on R/A; Weight 99.34 kg; cm10 Height 6 ft. 4 in. ; Pain 0/10; 11:40 BP 170 / 105; kc6 11:40 BP 166 / 103; Pulse 80; Resp 16 S; Pulse Ox 96% on R/A; kc6 13:37 BP 151 / 105; Pulse 87; Resp 17 S; Pulse Ox 100% on R/A; kc6 14:39 BP 175 / 98; Pulse 84; Resp 17 S; Pulse Ox 99% on R/A; kc6 15:20 BP 167 / 97; kc6 11:17 Body Mass Index 26.66 (99.34 kg, 193.04 cm) cm10 11:17 Pain Scale: Adult cm10 MDM: 11:15 Medical Screening Exam initiated dashawn 14:51 Antibiotic administration: Not indicated. Differential diagnosis: asthma, Bronchitis dashawn CHF exacerbation, Chronic Obstructive Pulmonary Disease hypertensive crisis, Malignant HTN, Myocardial Infarction pneumonia, Pneumothorax Psychogenic pulmonary edema, reactive airway disease, Sepsis Unstable Angina. Immunization status: Influenza vaccine: within last 5 years. Data reviewed: vital signs, nurses notes, lab test result(s), EKG, radiologic studies, plain films. Consideration of Admission/Observation Escalation of care including admission/observation considered. I considered the following discharge prescriptions or medication management in the emergency department Medications were administered in the Emergency Department. See MAR. Independent interpretation of the following test(s) in the Emergency Department EKG: See my EKG interpretation above. Test considered but Not performed: Ultrasound NO 2 D ECHO. Historians other than the Patient: PT WELL INFORMED. Care significantly affected by the following chronic conditions: Hypertension. 03/21 11:16 Order name: Basic Metabolic Panel; Complete Time: 14:40 [facility] 03/21 11:16 Order name: CBC with Diff; Complete Time: 14:40 [facility] 03/21 11:16 Order name: LFT's; Complete Time: 14:40 [facility] 03/21 11:16 Order name: Magnesium; Complete Time: 14:40 [facility] 03/21 11:16 Order name: NT PRO-BNP; Complete Time: 14:40 [facility] 03/21 11:16 Order name: PT-INR; Complete Time: 14:40 [facility] 03/21 11:16 Order name: Troponin HS; Complete Time: 14:40 [facility] 03/21 11:16 Order name: Lipase; Complete Time: 14:40 [facility] 03/21 12:01 Order name: CBC Smear Scan; Complete Time: 14:40 EDMS 03/21 14:39 Order name: Glucose, Ancillary Testing; Complete Time: 14:40 EDTX 03/21 11:16 Order name: XRAY Chest (1 view); Complete Time: 14:40 [facility] 03/21 11:16 Order name: EKG; Complete Time: 11:17 [facility] 03/21 11:16 Order name: Cardiac monitoring; Complete Time: 11:35 [facility] 03/21 11:16 Order name: EKG - Nurse/Tech; Complete Time: 11:35 [facility] 03/21 11:16 Order name: IV Saline Lock; Complete Time: 11:47 [facility] 03/21 11:16 Order name: Labs collected and sent; Complete Time: 11:47 [facility] 03/21 11:16 Order name: O2 Per Protocol; Complete Time: 11:30 [facility] 03/21 11:16 Order name: O2 Sat Monitoring; Complete Time: 11:30 dashawn EC:49 Rate is 74 beats/min. Rhythm is regular. QRS [place] is Normal. CA interval is normal. QRS dashawn interval is normal. QT interval is normal. No Q waves. T waves are Normal. No ST changes noted. Clinical impression: NSR w/ Non-specific ST/T Changes and No evidence of ischemia. Interpreted by me. Reviewed by me. Administered Medications: 11:39 Drug: Aspirin PO Chewable Tablet 81 mg PO once Route: PO; kc6 14:41 Follow up: Response: No adverse reaction kc6 11:47 Drug: NS 0.9% IV 500 ml 500 ml IV at 1 bolus once; to be given as a bolus over 30 kc6 minutes Volume: 500 ml; Route: IV; Rate: 1 bolus; Site: right antecubital; 14:42 Follow up: Response: No adverse reaction; IV Status: Completed infusion; IV Intake: kc6 500ml 14:55 Drug: Norvasc PO 10 mg PO once Route: PO; kc6 15:20 Follow up: Response: No adverse reaction; Blood pressure is lowered kc6 Disposition Summary: 03/21/24 14:54 Discharge Ordered Notes: Location: Home dashawn Problem: new dashawn Symptoms: have improved dashawn Condition: Stable dashawn Diagnosis - Essential (primary) hypertension dashawn Followup: dashawn - With: Private Physician - When: 2 - 3 days - Reason: Recheck today's complaints, Continuance of care, Re-evaluation by your physician Followup: dasahwn - With: Kev Blanton MD - When: 2 - 3 days - Reason: Recheck today's complaints, Re-evaluation by your physician Discharge Instructions: - Discharge Summary Sheet dashawn - Hypertension, Adult dashawn - Hypertension, Adult, [id number] dashawn - How to Take Your Blood Pressure, [id number] dashawn - Aspirin and Your Heart dashawn - Managing Your Hypertension dashawn Forms: - Medication Reconciliation Form dashawn - Antibiotic Education dashawn - Prescription Opioid Use dashawn - Patient Portal Instructions [facility] - Leadership Thank You Letter [facility] Prescriptions: - Lotrel 5-10 mg Oral capsule - take 1 capsule ORAL route daily STOP LISINOPRIL; 30 capsule; Refills: 0, dashawn Product Selection Permitted Signatures: Dispatcher [employer] Waylon Mcintyre MD MD cha Campbell, Kaitlyn RN RN kc6 Vivi Pacheco RN RN cm10
--- NOTE | 2024-03-21 14:55 | ER ---
Nurse's Notes [facility] Name: Dallin Duval Age: 49 yrs Sex: Male : 1975 Arrival Date: 03/21/2024 Time: 11: Bed 15 Private MD: Diagnosis: Essential (primary) hypertension Presentation: 03/21 11:17 Chief complaint: Patient states: Elevated blood pressure over the last 3 days. Pt cm10 states that his PCP told him to increase his lisinopril as needed and he is now up to 20mg per day. pt states that he thinks he may have had a panic attack. Pt reports having intermittent chest pain that he describes as stabbing sensation. Coronavirus screen: Client denies travel out of the [place] in the last 14 days. Ebola Screen: Patient denies travel to an Ebola-affected area in the 21 days before illness onset. Initial Sepsis Screen: Does the patient meet any 2 criteria? No. Patient's initial sepsis screen is negative. Does the patient have a suspected source of infection? No. Patient's initial sepsis screen is negative. Risk Assessment: Do you want to hurt yourself or someone else? Patient reports no desire to harm self or others. Onset of symptoms was March 18, 2024. 11:17 Method Of Arrival: Ambulatory cm10 11:17 Acuity: MELINA 3 cm10 Triage Assessment: 11:20 General: Appears in no apparent distress. comfortable, Behavior is calm, cooperative. cm10 Neuro: No deficits noted. Level of Consciousness is awake, alert, obeys commands, Oriented to person, place, time, situation, Appropriate for age. Respiratory: No deficits noted. Airway is patent Respiratory effort is even, unlabored, Respiratory pattern is regular, symmetrical. Historical: - Allergies: 11:19 PENICILLINS; cm10 - Home Meds: 11:19 lisinopril 5 mg oral tablet 1 tab daily [Active]; cm10 - PMHx: 11:19 Hypertensive disorder; cm10 - Immunization history:: Adult Immunizations up to date. - Infectious Disease History:: Denies. - Social history:: Smoking status: Patient denies any tobacco usage or history of. Screenin:40 [facility] ED Fall Risk Assessment (Adult) History of falling in the last 3 months, kc6 including since admission No falls in past 3 months (0 pts) Confusion or Disorientation No (0 pts) Intoxicated or Sedated No (0 pts) Impaired Gait No (0 pts) Mobility Assist Device Used No (0 pt) Altered Elimination No (0 pt) Score/Fall Risk Level 0 - 2 = Low Risk Oriented to surroundings, Maintained a safe environment, Educated pt \T\ family on fall prevention, incl call for assistance when getting out of bed. Abuse screen: Denies threats or abuse. Denies injuries from another. Nutritional screening: No deficits noted. Tuberculosis screening: No symptoms or risk factors identified. Assessment: 11:48 General: Appears in no apparent distress. comfortable, well groomed, well developed, kc6 Behavior is calm, cooperative, appropriate for age. Pain: Denies pain. Neuro: Level of Consciousness is awake, alert, obeys commands, Oriented to person, place, time, situation, Appropriate for age. Cardiovascular: Denies chest pain, Heart tones S1 S2 present Capillary refill < 3 seconds Rhythm is sinus rhythm. Respiratory: Airway is patent Trachea midline Respiratory effort is even, unlabored, Respiratory pattern is regular, symmetrical, Breath sounds are clear bilaterally. GI: No signs and/or symptoms were reported involving the gastrointestinal system. : No signs and/or symptoms were reported regarding the genitourinary system. EENT: No signs and/or symptoms were reported regarding the EENT system. Derm: No signs and/or symptoms reported regarding the dermatologic system. Skin is intact, is healthy with good turgor, Skin is pink, warm \T\ dry. Musculoskeletal: No signs and/or symptoms reported regarding the musculoskeletal system. Circulation, motion, and sensation intact. Range of motion: intact in all extremities. 12:48 Reassessment: Patient appears in no apparent distress at this time. No changes from kc6 previously documented assessment. Patient and/or family updated on plan of care and expected duration. Pain level reassessed. Patient is alert, oriented x 3, equal unlabored respirations, skin warm/dry/pink. 13:37 Reassessment: Patient appears in no apparent distress at this time. No changes from kc6 previously documented assessment. Patient and/or family updated on plan of care and expected duration. Pain level reassessed. Patient is alert, oriented x 3, equal unlabored respirations, skin warm/dry/pink. 14:39 Reassessment: Patient appears in no apparent distress at this time. No changes from kc6 previously documented assessment. Patient and/or family updated on plan of care and expected duration. Pain level reassessed. Patient is alert, oriented x 3, equal unlabored respirations, skin warm/dry/pink. Vital Signs: 11:17 BP 161 / 100; Pulse 80; Resp 15; Temp 98.8; Pulse Ox 100% on R/A; Weight 99.34 kg; cm10 Height 6 ft. 4 in. ; Pain 0/10; 11:40 BP 170 / 105; kc6 11:40 BP 166 / 103; Pulse 80; Resp 16 S; Pulse Ox 96% on R/A; kc6 13:37 BP 151 / 105; Pulse 87; Resp 17 S; Pulse Ox 100% on R/A; kc6 14:39 BP 175 / 98; Pulse 84; Resp 17 S; Pulse Ox 99% on R/A; kc6 15:20 BP 167 / 97; kc6 11:17 Body Mass Index 26.66 (99.34 kg, 193.04 cm) cm10 11:17 Pain Scale: Adult cm10 ED Course: 11:05 Patient arrived in ED. ra3 11:15 Waylon Ortiz MD is Attending Physician. dashawn 11:19 Triage completed. cm10 11:20 Arm band placed on right wrist. Patient placed in waiting room. cm10 11:29 Evangelina Ball, RN is Primary Nurse. kc6 11:40 Patient has correct armband on for positive identification. Bed in low position. Call [facility] light in reach. Side rails up X 1. security monitor on. Pulse ox on. NIBP on. Door closed. Noise minimized. Lights dimmed. Pillow given. 11:40 Patient maintains SpO2 saturation greater than 95% on room air. kc6 11:46 XRAY Chest (1 view) In Process Unspecified. EDMS 11:47 Initial lab(s) drawn, by me, sent to lab. Inserted saline lock: 20 gauge in right kc6 antecubital area, using aseptic technique. Blood collected. Flushed with 10 mL NS. 14:34 Diet: Patient given a diabetic meal tray. Tolerated well. kc6 14:54 Kev Blanton MD is Referral Physician. dashawn 15:20 No provider procedures requiring assistance completed. IV discontinued, intact, kc6 bleeding controlled, No redness/swelling at site. Pressure dressing applied. Administered Medications: 11:39 Drug: Aspirin PO Chewable Tablet 81 mg PO once Route: PO; kc6 14:41 Follow up: Response: No adverse reaction kc6 11:47 Drug: NS 0.9% IV 500 ml 500 ml IV at 1 bolus once; to be given as a bolus over 30 kc6 minutes Volume: 500 ml; Route: IV; Rate: 1 bolus; Site: right antecubital; 14:42 Follow up: Response: No adverse reaction; IV Status: Completed infusion; IV Intake: kc6 500ml 14:55 Drug: Norvasc PO 10 mg PO once Route: PO; kc6 15:20 Follow up: Response: No adverse reaction; Blood pressure is lowered kc6 Medication: 15:20 VIS not applicable for this client. kc6 Intake: 14:42 IV: 500ml; Total: 500ml. kc6 Outcome: 14:54 Discharge ordered by . dashawn 15:20 Discharged to home ambulatory, kc6 15:20 Condition: improved 15:20 Discharge instructions given to patient, Instructed on discharge instructions, follow up and referral plans. medication usage, Demonstrated understanding of instructions, follow-up care, medications, Prescriptions given X 1, 15:20 Patient left the ED. kc6 Signatures: Dispatcher [employer] EDMS Waylon Ortiz MD MD cha Campbell, Kaitlyn RN RN kc6 Vivi Pacheco RN RN cm10 Galilea Coronado ra3 Corrections: (The following items were deleted from the chart) 12:48 11:40 BP 107 / 105; kc6 kc6
[2024-03-21 16:21] VITALS: TEMP 98.8
[2024-03-21 16:29] VITALS: O2SAT 99
[2024-03-21 16:30] VITALS: BP 167/97
--- NOTE | 2024-03-29 11:13 | EKG ---
Test Date: 2024-03-21 Test Time: 11:35:32 Heel Packer: AM MEASUREMENT RESULTS: Intervals: Rate: 74 MN: 162 QRSD: 96 QT: 380 QTc: 421 [place]: P: 47 MN: 162 QRS: 30 T: 22 INTERPRETIVE STATEMENTS: Sinus rhythm with premature atrial complexes Otherwise normal ECG Compared to ECG 10/13/2020 21:20:50 Atrial premature complex(es) now present ST (T wave) deviation no longer present Electronically Signed On 03-29-24 11:01:47 [employer] by Quirino Arias
== END 2024-03-21 15:20 | disposition home or self-care (01) ==
LOC: ER 11:01
DX: I10 Essential (primary) hypertension (principal)
CPT/HCPCS: 96361; 93005; 85025; 80048; 36415; 83735; 85610; 82947; 80076; 84484; 83690; 83880; 71045; 96360; 99285; J7040